=== PATIENT | male | born 1985 | race Caucasian/White ===

== ENCOUNTER → 2019-12-13 | Outpatient (CLI) | payer BC ==
--- NOTE | 2019-12-13 13:42 | MR ---
EXAMINATION TYPE: MR shoulder LT wo con DATE OF EXAM: 12/13/2019 COMPARISON: None HISTORY: Pain in left shoulder TECHNIQUE: Multiplanar, multisequence imaging of the left shoulder is performed without contrast. FINDINGS: Rotator Cuff: There is a partial full-thickness tear at the anterior insertion of the supraspinatus t endon. Increased signal is present within the tendon, as there is tendon thickening consistent with t endinosis. Acromioclavicular Joint: Arthropathy present at the acromioclavicular joint is noted, mild mass effec t on the musculotendinous junction of supraspinatus Glenohumeral Joint: Intact Labrum: The labrum appears grossly intact given limitation of non-arthrogram study. Biceps Tendon: Biceps tendon appears to be replaced by a T2 bright signal over portion of its course along the proximal humerus, findings may represent ganglion cyst measuring approximately 4 cm x 1 cm x 1 cm. Bone marrow signal: Probable pseudocysts present in the humeral head. Other: 1.5 cm oval well-circumscribed area of mixed signal on T2, T1-weighted sequences on axial imag e 13 of the T2 data set may represent a lymph node but is indeterminate. IMPRESSION: Partial full-thickness tear of the rotator cuff as described. Along the long head of biceps tendon th ere may be a ganglion cyst.
== END | disposition home or self-care (01) ==
LOC: RADMRIMAIN 07:57
PROVIDERS: ATTEND Orthopaedic Surgery
DX: M75.122 Complete rotator cuff tear or rupture of left shoulder, not specified as traumatic (principal); M75.42 Impingement syndrome of left shoulder; M75.52 Bursitis of left shoulder; M19.012 Primary osteoarthritis, left shoulder; M75.22 Bicipital tendinitis, left shoulder; M25.522 Pain in left elbow; M77.12 Lateral epicondylitis, left elbow; M54.12 Radiculopathy, cervical region; M25.561 Pain in right knee; M22.41 Chondromalacia patellae, right knee; M93.98 Osteochondropathy, unspecified other; M25.562 Pain in left knee; M22.42 Chondromalacia patellae, left knee